=== PATIENT | male | born 1945 | race Caucasian/White ===

== ENCOUNTER 2016-04-18 16:11 | Emergency (ER) | payer MEDICARE ==
[~2016-04-18] VITALS: Ht 180.3 cm; Wt 83.6 kg
[~2016-04-18 16:11] MED LIST: ASPI81 PO; ATEN-102 PO; ATOR40TA49 PO; TERA5 PO; VIAG50TA PO
[2016-04-18 16:21] VITALS: BP 137/73; PULSE 67; RESP 18; TEMP 98.1; O2SAT 98
[2016-04-18] MEDS ORDERED: ASPI81CH7 CHEW (16:37)
[2016-04-18] MEDS ORDERED: HYDR12.57 PO (16:37)
[2016-04-18] MEDS ORDERED: ATEN100T PO (16:37)
[2016-04-18] MEDS ORDERED: TERA5CAP3 PO (16:37)
[2016-04-18] MEDS ORDERED: NORV2.5T PO (16:37)
[2016-04-18] MEDS ORDERED: VIAG50TA PO (16:37)
--- NOTE | 2016-04-18 16:45 | PD ---
HPI Chief Complaint: Skin Problem Time Seen by Provider: 16:45 Travel History International Travel<30 days: No Contact w/Intl Traveler<30days: No Traveled to known affect area: No History of Present Illness HPI 70-year-old male presents to the ED for evaluation of left arm skin tear. Patient states that he was working in his garage 4 days ago, suffered a skin tear in the left posterior forearm. States he washed the wound and applied a dressing. He states over the last few days it's become more tender, mildly reddened and feels warm to the touch. He denies numbness, tingling, weakness, limitations to range of motion of the left upper extremity. He is unsure of the date of his last tetanus immunization. Patient takes aspirin daily. PFSH Past Medical History Hx Anticoagulant Therapy: Yes (ASA) Cardiovascular Problems: Yes (HTN) High Cholesterol: Yes Hypertension: Yes Kidney Stones: Yes (11 KIDNEY STONES) Medical other: Yes (MITRAL VALVE PROLAPSE) Tetanus Vaccination: > 5 Years Influenza Vaccination: Yes Past Surgical History Other Surgery: Yes (HEMORROIDECTOMY AND LITHOTRIPSY) Social History Alcohol Use: Yes (daily) Tobacco Use: No Substance Use: No Allergies-Medications (Allergen,Severity, Reaction): Coded Allergies: Opiate Agonists (Narcotics) (Verified Adverse Reaction, Intermediate, nausea, 04/14/12) Reported Meds & Prescriptions Reported Meds & Active Scripts Active Bactrim DS (Sulfamethoxazole-Trimethoprim) 800-160 Mg Tab 1 Tab PO BID Reported Norvasc (Amlodipine Besylate) 2.5 Mg Tab Unknown Dose PO DAILY Hydrochlorothiazide 12.5 Mg Cap Unknown Dose PO DAILY Viagra (Sildenafil Citrate) 50 Mg Tab 50 Mg PO DAILY PRN Terazosin (Terazosin HCl) 5 Mg Cap 5 Mg PO HS Atenolol 100 Mg Tab 100 Mg PO DAILY Aspirin Children's (Aspirin) 81 Mg Chew 81 Mg CHEW DAILY Review of Systems Except as stated in HPI: all other systems reviewed are Neg Physical Exam Narrative GENERAL: Well-nourished, well-developed pleasant white male in no acute distress. SKIN: Warm and dry. There is a 3 cm x 1.5 cm laceration on the posterior aspect of the left forearm. Surrounded by 1 cm area of erythema. Mildly tender and warm to palpation. No active bleeding. HEAD: Normocephalic. EYES: No scleral icterus. No injection or drainage. NECK: Supple, trachea midline. No JVD or lymphadenopathy. CARDIOVASCULAR: Regular rate and rhythm without murmurs, gallops, or rubs. RESPIRATORY: Breath sounds equal bilaterally. No accessory muscle use. GASTROINTESTINAL: Abdomen soft, non-tender, nondistended. MUSCULOSKELETAL: No cyanosis, or edema. FOCUSED LEFT UPPER EXTREMITY EXAM: 2+ radial pulse. Patient retains full, active, flexion, extension of the fingers, flexion, extension, pronation and supination of the wrist. BACK: Nontender without obvious deformity. No CVA tenderness. Data Data Last Documented VS Vital Signs Date Time Temp Pulse Resp B/P Pulse Ox O2 Delivery O2 Flow Rate FiO2 04/18/16 16:21 98.1 67 18 137/73 98 Orders Tetanus/Diphtheria Tox Adult (Tetanus/Di (04/18/16 17:00) Sulfamet-Trimeth Ds 800-160 Mg (Bactrim (04/18/16 17:00) MDM Medical Decision Making Medical Screen Exam Complete: Yes Emergency Medical Condition: Yes Differential Diagnosis Skin tear versus laceration versus abscess versus cellulitis versus other Narrative Course 70-year-old male presents to the ED for evaluation of 4 day history of left arm skin tear. Patient states that he was working in his garage, suffered a skin tear in the left posterior forearm. States he washed the wound and applied a dressing. He states over the last few days it's become more tender, mildly reddened and feels warm to the touch. He denies numbness, tingling, weakness, limitations to range of motion of the left upper extremity. He is unsure of the date of his last tetanus immunization. Patient takes aspirin daily. Vitals reviewed. Physical exam reveals a 3 cm x 1.5 cm laceration on the posterior aspect of the left forearm. Surrounded by 1 cm area of erythema. Mildly tender and warm to palpation. No active bleeding. Patient retains full , active range of motion of the left upper extremity. Neurovascularly intact. The wound was cleaned and a dressing was applied. Patient's tetanus immunization was updated. He was prescribed Bactrim DS twice a day 7 days. First dose administered in the ED. He was instructed to monitor for worsening of infection, return to the ED should symptoms worsen. Otherwise, follow-up with the primary care provider. He indicated understanding of instructions and is amenable to the plan of care. He is stable and discharged home. Diagnosis Primary Impression: Skin tear of right upper extremity Additional Impression: Tetanus toxoid vaccination administered at current visit Referrals: Primary Care Physician Patient Instructions: Cellulitis (ED), General Instructions Additional Instructions: Wound clean, dry and covered. Take all medication as prescribed, even if symptoms resolve. Follow-up with primary care provider. Return to the ED for any urgent or emergent medical condition. Med/Other Pt SpecificInfo: Prescription(s) given Scripts Sulfamethoxazole-Trimethoprim (Bactrim DS)800-160 Mg Tab1 Tab PO BID #14 TAB Ref 0 Prov:Murphy Michel MD 04/18/16 Disposition: 01 DISCHARGE HOME Condition: Stable Yolanda Rodriguez Apr 18, 2016 16:45
[2016-04-18] MEDS ORDERED: SULFAMETHOXAZOLE-TRIMETHOPRIM DS 800-160 MG TAB PO ONE (17:00)
[2016-04-18] MEDS ORDERED: TETANUS/DIPHTHERIA TOXOID ADULT 0.5 ML VIAL IM ONE (17:00)
[2016-04-18] MEDS ORDERED: BACT800T5 PO (17:12)
== END 2016-04-18 17:20 | disposition home or self-care (01) ==
LOC: PHEFT 16:11
DX: S51.812A Laceration without foreign body of left forearm, initial encounter (principal); L53.9 Erythematous condition, unspecified; I10 Essential (primary) hypertension; E78.00 Pure hypercholesterolemia, unspecified; Z23 Encounter for immunization; Z79.82 Long term (current) use of aspirin; Z86.79 Personal history of other diseases of the circulatory system; Z87.442 Personal history of urinary calculi; X58.XXXA Exposure to other specified factors, initial encounter; Y92.015 Private garage of single-family (private) house as the place of occurrence of the external cause
CPT/HCPCS: 90471; 90714